=== PATIENT | female | born 2005 | race African-American/Black ===

== ENCOUNTER 2024-11-10 10:50 | Emergency (ER) | payer MEDICAID ==
[2024-11-10 11:02] VITALS: PULSE 115; RESP 18; O2SAT 98
== END 2024-11-10 12:39 | disposition left against medical advice (07) ==
LOC: ER 10:50
DX: R11.2 Nausea with vomiting, unspecified (principal); Z53.21 Procedure and treatment not carried out due to patient leaving prior to being seen by health care provider